=== PATIENT | female | born 1975 | race Caucasian/White ===

== ENCOUNTER 2019-08-26 14:30 | Observation (INO) | payer OTHER ==
[2019-08-26] MEDS ORDERED: HYDROmorphone 0.5 MG/0.5 ML SYRINGE IVP STA ×2 (15:24→17:25)
[2019-08-26] MEDS ORDERED: SODIUM CHLORIDE 0.9% 500 ML 500 ML IV STA (15:24)
[2019-08-26] MEDS ORDERED: ONDANSETRON 4 MG/2 ML VIAL IVP STA (15:24)
[2019-08-26] MEDS ORDERED: SODIUM CHLORIDE 0.9% 1,000 ML IV STA (15:24)
[2019-08-26 16:23] LABS: Basophils % (A) 0 %; Eosinophils # (A) 0.1 k/uL (0-0.7); Eosinophils % (A) 1 %; HCT 39.7 % (34.0-46.0); Lymphocytes # (A) 1.3 k/uL (1.0-4.8); Lymphocytes % (A) 11 %; MCH 27.7 pg (25.0-35.0); MCHC 32.7 g/dL (31.0-37.0); MCV 84.9 fL (80.0-100.0); Mean Platelet Volume 7.1; Monocytes # (A) 0.3 k/uL (0-1.0); Monocytes % (A) 3 %; Neutrophils # (A) 9.6 k/uL (1.3-7.7); Neutrophils % (A) 84 %; Platelet Count 345 k/uL (150-450); RBC 4.68 m/uL (3.80-5.40); RDW 13.6 % (11.5-15.5); WBC 11.3 k/uL (3.8-10.6)
[2019-08-26 16:27] LABS: ALT 23 U/L (9-52); AST 16 U/L (14-36); African American GFR (CKD) >90 (>60 ml/min/1.73 sqM); Albumin 4.1 g/dL (3.5-5.0); Alkaline Phosphatase 67 U/L (38-126); Amylase 51 U/L (30-110); Anion Gap 7 mmol/L; Blood Urea Nitrogen 9 mg/dL (7-17); Calcium 8.8 mg/dL (8.4-10.2); Carbon Dioxide 24 mmol/L (22-30); Chloride 106 mmol/L (98-107); Glucose 116 mg/dL (74-99); Potassium 4.2 mmol/L (3.5-5.1); Sodium 137 mmol/L (137-145); Total Bilirubin 0.2 mg/dL (0.2-1.3); Total Protein 6.7 g/dL (6.3-8.2)
--- NOTE | 2019-08-26 16:27 | ED ---
Abdominal Pain HPI - General Chief Complaint: Abdominal Pain Stated Complaint: abdominal pain Time Seen by Provider: 08/26/19 14:51 Source: patient, RN notes reviewed Mode of arrival: ambulatory Limitations: no limitations - History of Present Illness Initial Comments: 43-year-old female presents emergency Department with chief complaint of abdominal pain. Patient states it started this morning states it woke her up. Patient states is her upper abdomen does rate her back. Patient states that nothing makes the pain feel better or worse. She does admit to nausea vomiting. She has had panic this in the past but states it usually resolves. Patient states that she drank the pain to go away. Patient did not eat anything prior to this pain. Patient denies any current upper chest pain, shortness breath, headache or dizziness no fevers or chills. She has no dysuria no hematuria no diarrhea no constipation no prior abdominal surgeries. - Related Data Home Medications Medication Instructions Recorded Confirmed No Known Home Medications 08/26/19 08/26/19 Allergies Allergy/AdvReac Type Severity Reaction Status Date / Time sulfamethoxazole Allergy Rash/Hives Verified 08/26/19 14:51 [From Bactrim] trimethoprim [From Bactrim] Allergy Rash/Hives Verified 08/26/19 14:51 Review of Systems ROS Statement: Those systems with pertinent positive or pertinent negative responses have been documented in the HPI. ROS Other: All systems not noted in ROS Statement are negative. Past Medical History History of Any Multi-Drug Resistant Organisms: None Reported Past Surgical History: Back Surgery Past Psychological History: No Psychological Hx Reported Smoking Status: Never smoker Past Alcohol Use History: Occasional Past Drug Use History: None Reported General Exam Limitations: no limitations General appearance: alert, in no apparent distress Head exam: Present: atraumatic, normocephalic, normal inspection Eye exam: Present: normal appearance, PERRL, EOMI. Absent: scleral icterus, conjunctival injection, periorbital swelling Neck exam: Present: normal inspection, full ROM. Absent: tenderness, meningismus, lymphadenopathy Respiratory exam: Present: normal lung sounds bilaterally. Absent: respiratory distress, wheezes, rales, rhonchi, stridor Cardiovascular Exam: Present: regular rate, normal rhythm, normal heart sounds. Absent: systolic murmur, diastolic murmur, rubs, gallop, clicks GI/Abdominal exam: Present: soft, tenderness (Moderate upper abdominal diffuse), normal bowel sounds. Absent: distended, guarding, rebound, rigid Back exam: Absent: CVA tenderness (R), CVA tenderness (L) Neurological exam: Present: alert, oriented X3, CN II-XII intact Skin exam: Present: warm, dry, intact, normal color. Absent: rash Course Vital Signs 08/26/19 08/26/19 08/26/19 14:35 17:37 18:22 Temperature 98.2 F Pulse Rate 88 78 74 Respiratory 20 16 18 Rate Blood Pressure 129/81 132/84 110/77 O2 Sat by Pulse 99 99 94 L Oximetry Medical Decision Making - Medical Decision Making 43-year-old presented for abdominal. CT initially showed evidence of dilated common bile duct. Ultram was obtained given persistent symptoms which shows pericholecystic fluid collection with dilated gallbladder and gallstones. patient will be admitted on IV antibiotics. - Lab Data Result diagrams: 08/26/19 16:04 08/26/19 16:04 Lab Results 08/26/19 08/26/19 08/26/19 Range/Units 16:04 16:04 16:04 WBC 11.3 H (3.8-10.6) k/uL RBC 4.68 (3.80-5.40) m/uL Hgb 13.0 (11.4-16.0) gm/dL Hct 39.7 (34.0-46.0) % MCV 84.9 (80.0-100.0) fL MCH 27.7 (25.0-35.0) pg MCHC 32.7 (31.0-37.0) g/dL RDW 13.6 (11.5-15.5) % Plt Count 345 (150-450) k/uL Neutrophils % 84 % Lymphocytes % 11 % Monocytes % 3 % Eosinophils % 1 % Basophils % 0 % Neutrophils # 9.6 H (1.3-7.7) k/uL Lymphocytes # 1.3 (1.0-4.8) k/uL Monocytes # 0.3 (0-1.0) k/uL Eosinophils # 0.1 (0-0.7) k/uL Basophils # 0.0 (0-0.2) k/uL Sodium 137 (137-145) mmol/L Potassium 4.2 (3.5-5.1) mmol/L Chloride 106 (98-107) mmol/L Carbon Dioxide 24 (22-30) mmol/L Anion Gap 7 mmol/L BUN 9 (7-17) mg/dL Creatinine 0.58 (0.52-1.04) mg/dL Est GFR (CKD-EPI)AfAm >90 (>60 ml/min/1.73 sqM) Est GFR (CKD-EPI)NonAf >90 (>60 ml/min/1.73 sqM) Glucose 116 H (74-99) mg/dL Plasma Lactic Acid Bennett 1.0 (0.7-2.0) mmol/L Calcium 8.8 (8.4-10.2) mg/dL Total Bilirubin 0.2 (0.2-1.3) mg/dL AST 16 (14-36) U/L ALT 23 (9-52) U/L Alkaline Phosphatase 67 (38-126) U/L Troponin I (0.000-0.034) ng/mL Total Protein 6.7 (6.3-8.2) g/dL Albumin 4.1 (3.5-5.0) g/dL Amylase 51 (30-110) U/L Lipase 113 (23-300) U/L Urine Color Urine Appearance (Clear) Urine pH (5.0-8.0) Ur Specific [place] (1.001-1.035) Urine Protein (Negative) Urine Glucose (UA) (Negative) Urine Ketones (Negative) Urine Blood (Negative) Urine Nitrite (Negative) Urine Bilirubin (Negative) Urine Urobilinogen (<2.0) mg/dL Ur Leukocyte Esterase (Negative) Urine RBC (0-5) /hpf Urine WBC (0-5) /hpf Ur Squamous Epith Cells (0-4) /hpf Urine Mucus (None) /hpf 08/26/19 08/26/19 Range/Units 16:04 16:04 WBC (3.8-10.6) k/uL RBC (3.80-5.40) m/uL Hgb (11.4-16.0) gm/dL Hct (34.0-46.0) % MCV (80.0-100.0) fL MCH (25.0-35.0) pg MCHC (31.0-37.0) g/dL RDW (11.5-15.5) % Plt Count (150-450) k/uL Neutrophils % % Lymphocytes % % Monocytes % % Eosinophils % % Basophils % % Neutrophils # (1.3-7.7) k/uL Lymphocytes # (1.0-4.8) k/uL Monocytes # (0-1.0) k/uL Eosinophils # (0-0.7) k/uL Basophils # (0-0.2) k/uL Sodium (137-145) mmol/L Potassium (3.5-5.1) mmol/L Chloride (98-107) mmol/L Carbon Dioxide (22-30) mmol/L Anion Gap mmol/L BUN (7-17) mg/dL Creatinine (0.52-1.04) mg/dL Est GFR (CKD-EPI)AfAm (>60 ml/min/1.73 sqM) Est GFR (CKD-EPI)NonAf (>60 ml/min/1.73 sqM) Glucose (74-99) mg/dL Plasma Lactic Acid Bennett (0.7-2.0) mmol/L Calcium (8.4-10.2) mg/dL Total Bilirubin (0.2-1.3) mg/dL AST (14-36) U/L ALT (9-52) U/L Alkaline Phosphatase (38-126) U/L Troponin I <0.012 (0.000-0.034) ng/mL Total Protein (6.3-8.2) g/dL Albumin (3.5-5.0) g/dL Amylase (30-110) U/L Lipase (23-300) U/L Urine Color Yellow Urine Appearance Clear (Clear) Urine pH 7.0 (5.0-8.0) Ur Specific [place] 1.025 (1.001-1.035) Urine Protein Trace H (Negative) Urine Glucose (UA) Negative (Negative) Urine Ketones Negative (Negative) Urine Blood Negative (Negative) Urine Nitrite Negative (Negative) Urine Bilirubin Negative (Negative) Urine Urobilinogen <2.0 (<2.0) mg/dL Ur Leukocyte Esterase Trace H (Negative) Urine RBC 2 (0-5) /hpf Urine WBC 1 (0-5) /hpf Ur Squamous Epith Cells <1 (0-4) /hpf Urine Mucus Rare H (None) /hpf Disposition Clinical Impression: Cholelithiasis with acute cholecystitis Disposition: ADMITTED IP TO THIS HOSP Condition: Stable Referrals: Juwan Grubbs MD [Primary Care Provider] - 1-2 days
[2019-08-26 16:35] LABS: Appearance,Urine Clear (Clear); Bilirubin,Urine Negative (Negative); Blood,Urine Negative (Negative); Color,Urine Yellow; Glucose,Urine (UA) Negative (Negative); Ketones,Urine Negative (Negative); Leukocyte Esterase,Urine Trace (Negative); Mucus,Urine Rare /hpf; Nitrite,Urine Negative (Negative); Protein,Urine Trace (Negative); RBC,Urine 2 /hpf (0-5); Specific Gravity,Urine 1.025 (1.001-1.035); Squamous Epithelial Cell,Urine <1 /hpf (0-4); Urobilinogen,Urine <2.0 mg/dL (<2.0)
--- NOTE | 2019-08-26 16:45 | CT ---
EXAMINATION TYPE: CT abdomen pelvis w con DATE OF EXAM: 08/26/2019 COMPARISON: NONE HISTORY: 43-year-old female Severe upper abdominal pain TECHNIQUE: Contiguous axial scanning of the abdomen and pelvis following administration of 100 ml Iso jimmy 300 IV contrast. Delayed images through the kidneys and coronal/sagittal reconstructions perform ed. CT DLP: 920.2 mGycm Automated exposure control for dose reduction was used. FINDINGS: Heart upper limits of normal in size without pericardial effusion. Patchy groundglass in the lower gilmar ngs without pleural effusion. Liver enlarged at 21.3 cm possibly secondary to the presence of a Mainor's lobe. However, there is sl ightly low attenuation of the liver parenchyma. Bile duct is mildly dilated measuring up to 1 cm. Gallbladder is distended measuring up to 4.9 cm wid e. Portal venous system is patent. Adrenal glands, kidneys, spleen, and pancreas appear within normal limits. No dilated small bowel, free fluid, or free air. Scattered prominent but nonenlarged mesenteric lymph nodes measuring up to 5 mm. Scattered mild stool. No pericolonic inflammatory change. Bladder under distended. Uterus is anteverted. 4.9 cm cyst left ovary. Smaller 1.2 cm dominant follic le or functional cyst in the right ovary. No abnormal fluid collection in the pelvis or pelvic lympha denopathy. Bones: Facet arthropathy and degenerative disc disease lower lumbar spine. IMPRESSION: 1. MILDLY DILATED BILE DUCT AT 1 CM. CORRELATE WITH ALKALINE PHOSPHATASE AND BILIRUBIN LEVELS FOR POS SIBLE BILIARY OBSTRUCTION. ERCP OR MRCP CLINICALLY INDICATED. 2. THERE IS CORRESPONDING GALLBLADDER HYDROPS WHICH COULD BE SECONDARY TO BILIARY OBSTRUCTION OR ADALGISA Y ACUTE CHOLECYSTITIS. 3. A 4.9 CM CYST IN THE LEFT OVARY IS ALMOST CERTAINLY BENIGN. A PRECAUTIONARY MEASURE, 6-8 WEEK F OLLOW-UP ULTRASOUND CAN BE PERFORMED TO ENSURE INVOLUTION.
--- NOTE | 2019-08-26 18:25 | US ---
EXAMINATION TYPE: US gallbladder DATE OF EXAM: 08/26/2019 COMPARISON: CT 2019 CLINICAL HISTORY: Intractable abdominal pain, dilated common bile du. RUQ pain since 5 AM. Nausea, vo miting. EXAM MEASUREMENTS: Liver Length: 17.4 cm Gallbladder Wall: 0.20 cm CBD: 0.62 cm Right Kidney: 10.8 x 4.6 x 4.8 cm Pancreas: slightly limited Liver: Limited. Measures upper limits of normal Gallbladder: Appears distended. Measures 4.9 cm wide. Multiple echogenic areas with posterior shadow ing seen within the gallbladder. Largest measures: 1.9 x 1.9 x 1.2 cm. Hypoechoic area seen anterior to the gallbladder measurin.1 x 2.3 x 0.8 cm. Evidence for sonographic Wilson's sign: yes CBD: wnl Right Kidney: wnl IMPRESSION: Numerous gallstones. The bile ducts are not dilated. Gallbladder is dilated and measures more than 5 cm in diameter and consistent with acute cholecystitis. Small pericholecystic complex flu id collection.
[2019-08-26] MEDS ORDERED: HYDROmorphone 0.5 MG/0.5 ML SYRINGE IVP PRN (19:01)
[2019-08-26] MEDS ORDERED: NALOXONE 0.4 MG/ML 1 ML VIAL IV PRN (19:01)
[2019-08-26] MEDS ORDERED: PIPERACILLIN-TAZOBACTAM 3.375 GM in SODIUM CHLORIDE 0.9% 100 ML IVPB STA (19:02)
[2019-08-26] MEDS: SODIUM CHLORIDE 0.9% 1,000 ML IV SCH (20:10)
[2019-08-26] MEDS: HYDROmorphone 1 MG/ML 1 ML SYRINGE IVP PRN (21:18)
[2019-08-27] MEDS: HYDROmorphone 1 MG/ML 1 ML SYRINGE IVP PRN ×6 (00:29→22:48)
[2019-08-27] MEDS: PIPERACILLIN-TAZOBACTAM 3.375 GM in SODIUM CHLORIDE 0.9% 100 ML IVPB SCH ×3 (03:36→20:38)
[2019-08-27] MEDS ORDERED: ONDANSETRON 4 MG/2 ML VIAL IVP PRN (08:08)
[2019-08-27] MEDS ORDERED: HYDROcodone/APAP 5-325MG 1 EACH TAB PO PRN (08:08)
[2019-08-27] MEDS: PANTOPRAZOLE 40 MG/10 ML VIAL IVP SCH (08:29)
--- NOTE | 2019-08-27 08:52 | P.GSHP ---
History of Present Illness H&P Date: 08/27/19 Chief Complaint: abdominal pain CHIEF COMPLAINT: abdominal pain HISTORY OF PRESENT ILLNESS: 43 year old female who presented to the ER with a chief complaint of abdominal pain. Patient reports she was getting ready for work yesterday around 0500 when she began having abdominal pain.She reports pain was in the right upper quadrant and epigastric region. She reports getting this pain in the past but it usually resolved on its own after a short period of time. She reports nausea and vomiting prior to coming to the hospital. She is still nauseous this morning but no further episodes of vomiting. Denies diarrhea or constipation. Denies fever or chills. Pain is currently controlled on current regimen. PAST MEDICAL HISTORY: See list. PAST SURGICAL HISTORY: See list. SOCIAL HISTORY: No illicit drug use. REVIEW OF SYSTEMS: CONSTITUTIONAL: Denies fever or chills. HEENT: Denies blurred vision, vision changes, or eye pain. Denies hemoptysis CARDIOVASCULAR: Denies chest pain or pressure. RESPIRATORY: No shortness of breath. GASTROINTESTINAL: Refer to [facility] for pertinent findings HEMATOLOGIC: Denies bleeding disorders. GENITOURINARY: Denies any blood in urine. SKIN: Denies pruitis. Denies rash. PHYSICAL EXAM: VITAL SIGNS: Reviewed. GENERAL: Well-developed in no acute distress. HEENT: No sclera icterus. Extraocular movements grossly intact. Moist buccal mucosa. Head is atraumatic, normocephalic. ABDOMEN: Soft. Nondistended. Tenderness with palpation of right upper quadrant. Positive bowel sounds. NEUROLOGIC: Alert and oriented. Cranial nerves II through XII grossly intact. LABORATORY DATA: WBC 11.3 and admission. Hemoglobin 13.0. Lactic acid 1.0. Bilirubin 0.2. AST 16. ALT 23. IMAGIN. CT abdomen and pelvis: Mildly dilated bile duct at 1 cm. Corresponding gallbladder hydrops which could be secondary to biliary obstruction or early acute cholecystitis. 2. Gallbladder ultrasound: Numerous gallstones. Bile ducts are not dilated. Gallbladder is dilated and measures more than 5 cm in diameter consistent with acute cholecystitis. Small pericholecystic complex fluid collection. ASSESSMENT: 1. Abdominal pain 2. Acute cholecystitis 3. Leukocytosis PLAN: 1. NPO 2. Continue antibiotics 3. Patient to undergo laparoscopic cholecystectomy today with Dr. Schneider Nurse practitioner note has been reviewed by physician. Signing provider agrees with the documented findings, assessment, and plan of care. Past Medical History History of Any Multi-Drug Resistant Organisms: None Reported Past Surgical History: Back Surgery Additional Past Surgical History / Comment(s): back sx 1994, eye surgery-on right eye to "tighten muscles." Past Anesthesia/Blood Transfusion Reactions: No Reported Reaction Past Psychological History: No Psychological Hx Reported Smoking Status: Never smoker Past Alcohol Use History: Occasional Past Drug Use History: None Reported - Past Family History Mother Family Medical History: Cancer, Diabetes Mellitus, Hypertension Brother(s) Family Medical History: Diabetes Mellitus Medications and Allergies Home Medications Medication Instructions Recorded Confirmed Type Liraglutide [Saxenda] 1.8 units SQ DAILY 08/26/19 08/26/19 History Allergies Allergy/AdvReac Type Severity Reaction Status Date / Time sulfamethoxazole Allergy Intermediate Rash/Hives Verified 08/26/19 21:12 [From Bactrim] trimethoprim [From Bactrim] Allergy Intermediate Rash/Hives Verified 08/26/19 21:12 Surgical - Exam Vital Signs Temp Pulse Resp BP Pulse Ox 98.2 F 88 20 129/81 99 08/26/19 14:35 08/26/19 14:35 08/26/19 14:35 08/26/19 14:35 08/26/19 14:35 Results - Labs 08/26/19 16:04 08/26/19 16:04 Abnormal Lab Results - Last 24 Hours (Table) 08/26/19 08/26/19 08/26/19 Range/Units 16:04 16:04 16:04 WBC 11.3 H (3.8-10.6) k/uL Neutrophils # 9.6 H (1.3-7.7) k/uL Glucose 116 H (74-99) mg/dL Urine Protein Trace H (Negative) Ur Leukocyte Esterase Trace H (Negative) Urine Mucus Rare H (None) /hpf Diabetes panel 08/26/19 Range/Units 16:04 Sodium 137 (137-145) mmol/L Potassium 4.2 (3.5-5.1) mmol/L Chloride 106 (98-107) mmol/L Carbon Dioxide 24 (22-30) mmol/L BUN 9 (7-17) mg/dL Creatinine 0.58 (0.52-1.04) mg/dL Glucose 116 H (74-99) mg/dL Calcium 8.8 (8.4-10.2) mg/dL AST 16 (14-36) U/L ALT 23 (9-52) U/L Alkaline Phosphatase 67 (38-126) U/L Total Protein 6.7 (6.3-8.2) g/dL Albumin 4.1 (3.5-5.0) g/dL Calcium panel 08/26/19 Range/Units 16:04 Calcium 8.8 (8.4-10.2) mg/dL Albumin 4.1 (3.5-5.0) g/dL Pituitary panel 08/26/19 Range/Units 16:04 Sodium 137 (137-145) mmol/L Potassium 4.2 (3.5-5.1) mmol/L Chloride 106 (98-107) mmol/L Carbon Dioxide 24 (22-30) mmol/L BUN 9 (7-17) mg/dL Creatinine 0.58 (0.52-1.04) mg/dL Glucose 116 H (74-99) mg/dL Calcium 8.8 (8.4-10.2) mg/dL Adrenal panel 08/26/19 Range/Units 16:04 Sodium 137 (137-145) mmol/L Potassium 4.2 (3.5-5.1) mmol/L Chloride 106 (98-107) mmol/L Carbon Dioxide 24 (22-30) mmol/L BUN 9 (7-17) mg/dL Creatinine 0.58 (0.52-1.04) mg/dL Glucose 116 H (74-99) mg/dL Calcium 8.8 (8.4-10.2) mg/dL Total Bilirubin 0.2 (0.2-1.3) mg/dL AST 16 (14-36) U/L ALT 23 (9-52) U/L Alkaline Phosphatase 67 (38-126) U/L Total Protein 6.7 (6.3-8.2) g/dL Albumin 4.1 (3.5-5.0) g/dL
[2019-08-27] MEDS ORDERED: IV FLUID CONTINUATION 1,000 ML IV ONE ×2 (13:34→14:46)
[2019-08-27] MEDS ORDERED: ONDANSETRON 4 MG/2 ML VIAL IVP ONE (13:53)
[2019-08-27] MEDS ORDERED: DEXAMETHASONE SOD PHOSPHATE 10 MG/ML 1 ML VIAL IV ONE (13:54)
[2019-08-27] MEDS: HEPARIN SODIUM,PORCINE 5,000 UNIT/ML 1 ML VIAL SQ SCH (14:22)
[2019-08-27] MEDS ORDERED: LIDOCAINE 1% INJ 10MG/ML (20 ML MDV) ONE (14:45)
[2019-08-27] MEDS ORDERED: fentaNYL (PF) 50 MCG/ML 2 ML AMP ONE (14:45)
[2019-08-27] MEDS ORDERED: MIDAZOLAM 2 MG/2 ML VIAL ONE (14:45)
[2019-08-27] MEDS ORDERED: KETOROLAC 30 MG/ML 1 ML VIAL ONE (14:45)
[2019-08-27] MEDS ORDERED: ONDANSETRON 4 MG/2 ML VIAL ONE (14:45)
[2019-08-27] MEDS ORDERED: ROCURONIUM BROMIDE 10 MG/ML 10 ML VIAL IV ONE (14:45)
[2019-08-27] MEDS ORDERED: PROPOFOL 10 MG/ML 20 ML VIAL IV ONE (14:45)
[2019-08-27] MEDS ORDERED: GLYCOPYRROLATE 0.2 MG/ML 2 ML VIAL ONE (14:45)
[2019-08-27] MEDS ORDERED: DEXAMETHASONE SOD PHOS (MDV) 100 MG/10 ML VIAL ONE (14:45)
[2019-08-27] MEDS ORDERED: SUCCINYLCHOLINE CHLORIDE 100 MG/5 ML SYR IV ONE (14:45)
[2019-08-27] MEDS ORDERED: NEOSTIGMINE 1 MG/ML 10 ML VIAL ONE (14:45)
[2019-08-27] MEDS ORDERED: BUPIVACAINE (PF) 0.25% 30 ML VIAL SQ ONE (15:15)
--- NOTE | 2019-08-27 15:33 | P.OP ---
Date of Procedure: 08/27/19 Preoperative Diagnosis: Cholecystitis Postoperative Diagnosis: Cholecystitis Procedure(s) Performed: Laparoscopic cholecystectomy Anesthesia: MARGARITO Surgeon: Babak Schneider Estimated Blood Loss (ml): 5 Pathology: other (Gallbladder) Condition: stable Disposition: PACU Description of Procedure: The patient was placed on the operating table. The patient received a general endotracheal tube anesthesia. The patients abdomen was prepped and draped in the usual sterile fashion. Through an infraumbilical stab incision, the fascia of the anterior abdominal wall was grasped with a pair of Kochers and then the Veress needle was placed in the peritoneal cavity. Position of the Veress needle was confirmed with positive drop test. The abdomen was then insufflated. After adequate insufflation, the 10 mm trocar was placed in the peritoneal cavity. Following this the laparoscope was placed in the peritoneal cavity. The patient was placed in the head-up, right side up position and then a 5 mm trocar was placed in the right lateral and right subcostal position under direct visualization. A 8 mm trocar was placed in the epigastric position. The gallbladder was acutely inflamed. The gallbladder was hydropic. The gallbladder is aspirated. The gallbladder wall was very thick. The gallbladder was grasped in the fundus and infundibulum. Traction on the gallbladder was placed in the lateral and the cephalad positions. The triangle of Calot was vi sualized.. The cystic duct was bluntly dissected until the union of the cystic duct and common bile duct was seen. A critical view of safety was achieved. The cystic duct was then divided and sealed with the Harmonic scissors. A PDS Endoloop was then placed throughout the cystic duct stump. The cystic artery divided and sealed with the Harmonic scissors. The gallbladder was then removed from the liver bed using Harmonic scissors. The gallbladder was then extracted through the epigastric port site. Operative field was checked for any bleeding spots and Harmonic scissors was used to coagulate the liver bed. The abdomen was irrigated. The trocars were removed. The skin was closed using interrupted 3-0 Vicryl suture. Dermabond dressing were applied. The patient tolerated the procedure well.
[2019-08-27] MEDS: SODIUM CHLORIDE 0.9% 1,000 ML IV SCH (17:49)
[2019-08-27 20:30] VITALS: RESP 16
[2019-08-28] MEDS: PIPERACILLIN-TAZOBACTAM 3.375 GM in SODIUM CHLORIDE 0.9% 100 ML IVPB SCH (03:51)
[2019-08-28] MEDS: SODIUM CHLORIDE 0.9% 1,000 ML IV SCH (06:17)
[2019-08-28 08:05] LABS: Basophils % (A) 0 %; Eosinophils % (A) 0 %; HCT 34.4 % (34.0-46.0); Lymphocytes # (A) 1.3 k/uL (1.0-4.8); Lymphocytes % (A) 14 %; MCH 28.1 pg (25.0-35.0); MCHC 32.1 g/dL (31.0-37.0); MCV 87.5 fL (80.0-100.0); Mean Platelet Volume 6.8; Monocytes # (A) 0.4 k/uL (0-1.0); Monocytes % (A) 5 %; Neutrophils # (A) 7.6 k/uL (1.3-7.7); Neutrophils % (A) 81 %; Platelet Count 300 k/uL (150-450); RBC 3.93 m/uL (3.80-5.40); RDW 13.5 % (11.5-15.5); WBC 9.4 k/uL (3.8-10.6)
[2019-08-28] MEDS: PANTOPRAZOLE 40 MG/10 ML VIAL IVP SCH (08:11)
[2019-08-28] MEDS: HEPARIN SODIUM,PORCINE 5,000 UNIT/ML 1 ML VIAL SQ SCH (08:11)
[2019-08-28 08:48] VITALS: BP 111/65; PULSE 53; TEMP 97.7
--- NOTE | 2019-08-28 11:53 | P.DS ---
Providers Date of admission: 08/26/19 18:45 Expected date of discharge: 08/28/19 Attending physician: Babak Schneider Primary care physician: Juwan Grubbs [facility] Course: 43 year old female who presented to the ER with a chief complaint of abdominal pain. Patient was found to have acute cholecystitis. She underwent laparoscopic cholecystectomy with Dr. Schneider. Patient is doing well postoperatively with no immediate complications. Pain is controlled on oral medications. She is tolerating diet without nausea or vomiting. Vital signs have been stable. She is stable for discharge home today. Please see EMR for further hospital course details. Discharge Diagnosis: 1. Abdominal pain 2. Acute cholecystitis 3. Leukocytosis Nurse practitioner note has been reviewed by physician. Signing provider agrees with the documented findings, assessment, and plan of care. Patient Condition at Discharge: Stable Plan - Discharge Summary Discharge Rx Participant: No New Discharge Prescriptions: New Hydrocodone/Acetaminophen [[place] 5-325] 1 tab PO Q4HR PRN 3 Days #18 tab PRN Reason: Pain No Action Liraglutide [Saxenda] 1.8 units SQ DAILY Discharge Medication List Liraglutide [Saxenda] 1.8 units SQ DAILY 08/26/19 [History] Hydrocodone/Acetaminophen [[place] 5-325] 1 tab PO Q4HR PRN 3 Days #18 tab 08/28/19 [Rx] Follow up Appointment(s)/Referral(s): Juwan Grubbs MD [Primary Care Provider] - 1-2 days Babak Schneider MD [STAFF PHYSICIAN] - 1 Week Activity/Diet/Wound Care/Special Instructions: No driving while taking [place] No lifting over 10 pounds You may shower. No soaking or tub baths Very light activity until you are reevaluated at your follow up appointment with your surgeon
== END 2019-08-28 12:55 | disposition home or self-care (01) ==
LOC: EC 14:30 → 6PED 18:45
PROVIDERS: ADMIT Surgery; ATTEND Surgery
DX: K80.00 Calculus of gallbladder with acute cholecystitis without obstruction (principal); K21.9 Gastro-esophageal reflux disease without esophagitis; N83.202 Unspecified ovarian cyst, left side; Z79.84 Long term (current) use of oral hypoglycemic drugs; Z88.1 Allergy status to other antibiotic agents; Z88.2 Allergy status to sulfonamides; Z83.3 Family history of diabetes mellitus; Z82.49 Family history of ischemic heart disease and other diseases of the circulatory system
CPT/HCPCS: 47562; 96375 ×2; 96376 ×3; 96361; 96374; 99285; 36415; 93005; 81025 ×2; 88304; 80053; 82150; 83605; 83690; 84484; 85025 ×2; 81001; 76705; 74177; G0378 ×3; J2543 ×3; J2250; J1644 ×2; J1100 ×2; J2710; J2405 ×2; J2001; J3010; J1885; J1170 ×4; J0330; J2704; C9113 ×2; Q9967

== ENCOUNTER → 2020-11-24 | Outpatient (CLI) | payer OTHER ==
--- NOTE | 2020-11-24 11:09 | FL ---
EXAMINATION TYPE: FL UGI air DATE OF EXAM: 11/24/2020 COMPARISON: CT abdomen and pelvis August 26, 2019 HISTORY: Epigastric pain, reflux-like symptoms. Some improvement on reflux medication per patient. TECHNIQUE: A double contrast UGI study is performed. A total of 30 seconds of fluoroscopic time util ized during procedure. 44 spot images saved. FINDINGS: Branch Office Manager image of the abdomen shows no gross abnormality. The esophagus shows satisfactory motility and emptying into the stomach. No evidence of fixed hiatal hernia or stricture noted. No diverticulum appreciated. The stomach shows less than optimal distention with mild gastric fold prominence fairly diffusely gre atest in the fundus. No focal ulcer disease identified. Fairly moderate distal gastroesophageal reflu x into distal one half of the esophagus seen during real-time performance. The duodenal bulb, sweep, and proximal small bowel loops are unremarkable. IMPRESSION: Mild diffuse gastritis with moderate gastroesophageal reflux.
== END | disposition home or self-care (01) ==
LOC: RADUSWWP 09:33
PROVIDERS: ATTEND Family Medicine
DX: K21.9 Gastro-esophageal reflux disease without esophagitis (principal); K29.70 Gastritis, unspecified, without bleeding
CPT/HCPCS: 74246

== ENCOUNTER → 2020-12-03 | Outpatient (CLI) | payer OTHER ==
--- NOTE | 2020-12-07 10:17 | MM ---
Reason for exam: screening (asymptomatic). History: Family history of breast cancer in maternal grandmother. Took hormonal contraceptives for 5 years. Physical Findings: A clinical breast exam by your physician is recommended on an annual basis and results should be correlated with mammographic findings. MG 3D Screening Mammo W/Cad Bilateral CC and MLO view(s) were taken. No prior studies available for comparison. There are scattered fibroglandular densities. 7mm circumscribed mass posterior upper outer quadrant right breast suspected intrammary node. Ultrasound recommended to confirm. Otherwise, no discrete abnormality. ASSESSMENT: Incomplete: need additional imaging evaluation, BI-RAD 0 RECOMMENDATION: Ultrasound of the right breast. [facility] will attempt to contact patient to return for ultrasound.
== END | disposition home or self-care (01) ==
LOC: RADMAMWWP 16:24
PROVIDERS: ATTEND Family Medicine
DX: Z12.31 Encounter for screening mammogram for malignant neoplasm of breast (principal)
CPT/HCPCS: 77063; 77067

== ENCOUNTER → 2020-12-16 | Outpatient (CLI) | payer OTHER ==
--- NOTE | 2020-12-16 09:00 | USB ---
Reason for exam: additional evaluation requested from abnormal screening. History: Family history of breast cancer in maternal grandmother. Took hormonal contraceptives for 5 years. Physical Findings: Nurse did not find any significant physical abnormalities on exam. US Breast Workup Limited RT Right limited breast ultrasound including focal area of concern, retroareolar and axilla demonstrates a 0.6 x 0.4 x 0.6cm lymph node at 11 o'clock, corresponds to the mammographic finding. Scanned 9-12 o'clock. These results were verbally communicated with the patient and result sheet given to the patient on 12/16/20. ASSESSMENT: Benign, BI-RAD 2 RECOMMENDATION: Return to routine screening mammogram schedule for both breasts.
== END | disposition home or self-care (01) ==
LOC: RADUSWWP 07:36
PROVIDERS: ATTEND Family Medicine
DX: R92.8 Other abnormal and inconclusive findings on diagnostic imaging of breast (principal)

== ENCOUNTER 2020-12-20 06:42 | Emergency (ER) | payer OTHER ==
[2020-12-20 06:49] VITALS: TEMP 98.3
[2020-12-20] MEDS ORDERED: KETOROLAC 15 MG/ML 1 ML VIAL IM STA (06:58)
--- NOTE | 2020-12-20 07:24 | ED ---
Fall HPI - General Chief Complaint: Fall Stated Complaint: fall,head injury Time Seen by Provider: 12/20/20 06:51 Source: patient, RN notes reviewed Mode of arrival: ambulatory - History of Present Illness Initial Comments: Patient is a 45-year-old white female that presented to the emergency department complaining of head pain, neck stiffness status post fall this morning while on her way to her car to work. She was she slipped feet went out from under [employer] and she landed on the back of her head. She noted that she did not lose consciousness she does not feel dizzy nauseous and hasn't vomited. She was accompanied by her who noted that she had an hour drive and didn't want her to drive by herself just in case. She noted some mild stiffness in the right aspect of her neck. Other than that she stated that she was doing okay this morning and had no issues. Patient did appear to be in mild pain but no distress. She denied any nausea, vomiting, loss of consciousness, dizziness, lightheadedness, numbness, tingling, chest pain, shortness of breath, fever, fatigue, chills, night sweats. - Related Data Home Medications Medication Instructions Recorded Confirmed Omeprazole 20 mg PO DAILY 12/20/20 12/20/20 buPROPion XL [Wellbutrin Xl] 150 mg PO DAILY 12/20/20 12/20/20 Allergies Allergy/AdvReac Type Severity Reaction Status Date / Time sulfamethoxazole Allergy Intermediate Rash/Hives Verified 12/20/20 07:37 [From Bactrim] trimethoprim [From Bactrim] Allergy Intermediate Rash/Hives Verified 12/20/20 07:37 Review of Systems ROS Statement: Those systems with pertinent positive or pertinent negative responses have been documented in the HPI. ROS Other: All systems not noted in ROS Statement are negative. Past Medical History Past Medical History: No Reported History History of Any Multi-Drug Resistant Organisms: None Reported Past Surgical History: Back Surgery Additional Past Surgical History / Comment(s): back sx 1994, eye surgery-on right eye to "tighten muscles." Past Anesthesia/Blood Transfusion Reactions: No Reported Reaction Past Psychological History: No Psychological Hx Reported Smoking Status: Never smoker Past Alcohol Use History: Occasional Past Drug Use History: None Reported - Past Family History Mother Family Medical History: Cancer, Diabetes Mellitus, Hypertension Brother(s) Family Medical History: Diabetes Mellitus General Exam Limitations: no limitations General appearance: alert, in no apparent distress Head exam: Present: normocephalic, normal inspection Eye exam: Present: normal appearance, PERRL, EOMI. Absent: scleral icterus, conjunctival injection, periorbital swelling ENT exam: Present: normal exam, mucous membranes moist Neck exam: Present: normal inspection, tenderness ( right paraspinal muscles in the cervical region). Absent: meningismus, lymphadenopathy Respiratory exam: Present: normal lung sounds bilaterally. Absent: respiratory distress, wheezes, rales, rhonchi, stridor Cardiovascular Exam: Present: regular rate, normal rhythm, normal heart sounds. Absent: systolic murmur, diastolic murmur, rubs, gallop, clicks GI/Abdominal exam: Present: soft, normal bowel sounds. Absent: distended, tenderness, guarding, rebound, rigid Extremities exam: Present: normal inspection, full ROM, normal capillary refill. Absent: tenderness, pedal edema, joint swelling, calf tenderness Neurological exam: Present: alert, oriented X3, CN II-XII intact Psychiatric exam: Present: normal affect, normal mood Skin exam: Present: warm, dry, intact, normal color. Absent: rash Course Vital Signs 12/20/20 06:45 Temperature 98.3 F Pulse Rate 78 Respiratory 18 Rate Blood Pressure 137/88 O2 Sat by Pulse 98 Oximetry Medical Decision Making - Medical Decision Making 45-year-old female status post fall where she hit her head. Patient was given pain medication, she tolerated it well. CT of the head and neck. CT came back negative for any fractures or bleeds. Case discussed with Dr. Brunner. - Radiology Data Radiology results: report reviewed, image reviewed There is no evidence for intracranial hemorrhage or sulcal effacement. No mass effects are seen. Disposition Clinical Impression: Fall, Head injury, Neck stiffness Disposition: HOME SELF-CARE Condition: Stable Instructions (If sedation given, give patient instructions): Head Injury (ED) Additional Instructions: Please return to the Emergency Department if symptoms worsen or any other concerns. Monitor for any dizziness, confusion, nausea. Try not to sleep morning For at least 8 hours. Pain medication as needed. Follow-up with primary care 1-2 days. Is patient prescribed a controlled substance at d/c from ED?: No Referrals: Lourdes Gamble MD [Primary Care Provider] - 1-2 days Time of Disposition: 08:27
[2020-12-20 08:02] VITALS: BP 128/81; PULSE 74; RESP 16
--- NOTE | 2020-12-20 08:04 | CT ---
EXAMINATION TYPE: CT brain nena valero DATE OF EXAM: 12/20/2020 COMPARISON: None HISTORY: Pain, Fall; heead injury; NO LOC CT DLP: 1323.[address] Brain: Unenhanced CT of the brain was performed. The ventricles, basal cisterns and sulci overlying the cerebral convexities demonstrate a normal appe arance. There is no evidence for intracranial hemorrhage or sulcal effacement. No mass effects are seen. If symptoms persist consider MRI. Osseous calvarium is intact. IMPRESSION: No acute intracranial process CT Cervical Spine: Unenhanced CT of the cervical spine was performed with bone and soft tissue window settings submitted . Coronal and sagittal reconstruction is obtained. There is normal alignment and prevertebral soft tissues. I do not see evidence for fracture or sublu xation. No significant degenerative changes are present. The lung apices are clear. IMPRESSION: No evidence for acute fracture or subluxation of the cervical spine.
== END 2020-12-20 08:36 | disposition home or self-care (01) ==
LOC: EC 06:42
DX: S09.90XA Unspecified injury of head, initial encounter (principal); M43.6 Torticollis; Z88.1 Allergy status to other antibiotic agents; Z88.2 Allergy status to sulfonamides; W01.10XA Fall on same level from slipping, tripping and stumbling with subsequent striking against unspecified object, initial encounter
CPT/HCPCS: 72125; 70450; 99284; 96372; J1885

== ENCOUNTER → 2021-12-22 | Outpatient (CLI) | payer OTHER ==
--- NOTE | 2021-12-22 12:31 | ECHOF ---
Referral Reason:R00.2 palpitations MEASUREMENTS -------- HEIGHT: 157.5 cm WEIGHT: 77.1 kg BP: RVIDd: 2.7 cm (< 3.3) IVSd: 1.0 cm (0.6 - 1.1) LVIDd: 3.8 cm (3.9 - 5.3) LVPWd: 1.4 cm (0.6 - 1.1) IVSs: 1.6 cm LVIDs: 1.4 cm LVPWs: 1.5 cm LAESV Index (A-L): 22.79 ml/m Ao Diam: 3.0 cm (2.0 - 3.7) AV Cusp: 1.7 cm (1.5 - 2.6) LA Diam: 3.2 cm (2.7 - 3.8) MV EXCURSION: 18.395 mm (> 18.000) MV EF SLOPE: 102 mm/s (70 - 150) EPSS: 0.5 cm MV E Soham: 0.79 m/s MV DecT: 173 ms MV A Soham: 0.56 m/s MV E/A Ratio: 1.41 RAP: 5.00 mmHg RVSP: 32.02 mmHg FINDINGS -------- This was a technically good study. The left ventricular size is normal. Left ventricular wall thickness is normal. Overall left vent ricular systolic function is normal with, an EF between 55 - 60 %. The right ventricle is normal in size. The left atrial size is normal. The right atrial size is normal. The aortic valve is trileaflet and appears structurally normal. The mitral valve is normal. There is trace mitral regurgitation. The tricuspid valve appears structurally normal. Mild tricuspid regurgitation present. Right vent ricular systolic pressure is normal at < 35 mmHg. There is no pulmonic regurgitation present. The aortic root size is normal. Normal inferior vena cava with normal inspiratory collapse consistent with estimated right atrial pre ssure of 5 mmHg. There is no pericardial effusion. CONCLUSIONS -------- 1. The left ventricular size is normal. 2. Left ventricular wall thickness is normal. 3. Overall left ventricular systolic function is normal with, an EF between 55 - 60 %. 4. There is trace mitral regurgitation. 5. Mild tricuspid regurgitation present. 6. There is no pericardial effusion. [employer] MACHINE OPERATOR: Farnaz Moreno RDCS
== END | disposition home or self-care (01) ==
LOC: RADECHMAIN 11:00
PROVIDERS: ATTEND Family Medicine
DX: I08.1 Rheumatic disorders of both mitral and tricuspid valves (principal)
CPT/HCPCS: 93306

== ENCOUNTER 2022-09-06 07:09 | Emergency (ER) | payer OTHER ==
[2022-09-06] MEDS ORDERED: SODIUM CHLORIDE 0.9% 1,000 ML IV STA (07:35)
[2022-09-06] MEDS ORDERED: HYDROmorphone 0.5 MG/0.5 ML SYRINGE IVP STA (07:35)
[2022-09-06] MEDS ORDERED: ONDANSETRON 4 MG/2 ML VIAL IVP STA (07:35)
--- NOTE | 2022-09-06 07:42 | ED ---
Abdominal Pain HPI - General Chief Complaint: Abdominal Pain Stated Complaint: Abdominal Pain Time Seen by Provider: 09/06/22 07:29 Source: patient, RN notes reviewed Mode of arrival: ambulatory Limitations: no limitations - History of Present Illness Initial Comments: 46-year-old female presents emergency Department with chief complaint of left lower quadrant abdominal pain. Patient states started overnight. Patient states with movement or pressing on the area. Patient denies any history of diverticulitis denies any vaginal bleeding vaginal discharge no hematuria or dysuria noted patient states she's no back pain no flank pain patient denies fe vers chills chest pain shortness breath. - Related Data Home Medications Medication Instructions Recorded Confirmed Omeprazole 20 mg PO DAILY 12/20/20 12/20/20 buPROPion XL [Wellbutrin Xl] 150 mg PO DAILY 12/20/20 12/20/20 Previous Rx's Medication Instructions Recorded Ibuprofen [Motrin] 600 mg PO Q8HR PRN #20 tab 09/06/22 Allergies Allergy/AdvReac Type Severity Reaction Status Date / Time sulfamethoxazole Allergy Intermediate Rash/Hives Verified 09/06/22 07:27 [From Bactrim] trimethoprim [From Bactrim] Allergy Intermediate Rash/Hives Verified 09/06/22 07:27 Review of Systems ROS Statement: Those systems with pertinent positive or pertinent negative responses have been documented in the HPI. ROS Other: All systems not noted in ROS Statement are negative. Past Medical History Past Medical History: No Reported History History of Any Multi-Drug Resistant Organisms: None Reported Past Surgical History: Back Surgery, Cholecystectomy, Uterine Ablation Additional Past Surgical History / Comment(s): back sx 1994, eye surgery-on right eye to "tighten muscles." Past Anesthesia/Blood Transfusion Reactions: No Reported Reaction Past Psychological History: No Psychological Hx Reported Smoking Status: Never smoker Past Alcohol Use History: Occasional Past Drug Use History: None Reported - Past Family History Mother Family Medical History: Cancer, Diabetes Mellitus, Hypertension Brother(s) Family Medical History: Diabetes Mellitus General Exam Limitations: no limitations General appearance: alert, in no apparent distress Head exam: Present: atraumatic, normocephalic, normal inspection Eye exam: Present: normal appearance, PERRL, EOMI. Absent: scleral icterus, conjunctival injection, periorbital swelling ENT exam: Present: normal exam, normal oropharynx, mucous membranes moist Neck exam: Present: normal inspection, full ROM. Absent: tenderness, meningismus, lymphadenopathy Respiratory exam: Present: normal lung sounds bilaterally. Absent: respiratory distress, wheezes, rales, rhonchi, stridor Cardiovascular Exam: Present: regular rate, normal rhythm, normal heart sounds. Absent: systolic murmur, diastolic murmur, rubs, gallop, clicks GI/Abdominal exam: Present: soft, tenderness (Left lower quadrant), normal bowel sounds. Absent: distended, guarding, rebound, rigid Back exam: Absent: CVA tenderness (R), CVA tenderness (L) Neurological exam: Present: alert Skin exam: Present: warm, dry, intact, normal color. Absent: rash Course Vital Signs 09/06/22 07:24 Temperature 98 F Pulse Rate 92 Respiratory 16 Rate Blood Pressure 149/90 O2 Sat by Pulse 98 Oximetry Medical Decision Making - Medical Decision Making 46-year-old female presented emergency from for left upper quadrant abdominal pain CT showed evidence of ovarian cyst compartmental WITH NORMAL FLOW. 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 - Lab Data Result diagrams: 09/06/22 07:51 09/06/22 07:51 Lab Results 09/06/22 09/06/22 09/06/22 Range/Units 07:51 07:51 07:51 WBC 11.3 H (3.8-10.6) k/uL RBC 5.13 (3.80-5.40) m/uL Hgb 14.4 (11.4-16.0) gm/dL Hct 43.7 (34.0-46.0) % MCV 85.1 (80.0-100.0) fL MCH 28.1 (25.0-35.0) pg MCHC 33.1 (31.0-37.0) g/dL RDW 13.4 (11.5-15.5) % Plt Count 431 (150-450) k/uL MPV 8.2 Neutrophils % 66 % Lymphocytes % 27 % Monocytes % 4 % Eosinophils % 2 % Basophils % 0 % Neutrophils # 7.5 (1.3-7.7) k/uL Lymphocytes # 3.0 (1.0-4.8) k/uL Monocytes # 0.5 (0-1.0) k/uL Eosinophils # 0.2 (0-0.7) k/uL Basophils # 0.1 (0-0.2) k/uL Sodium 138 (137-145) mmol/L Potassium 4.9 (3.5-5.1) mmol/L Chloride 106 (98-107) mmol/L Carbon Dioxide 23 (22-30) mmol/L Anion Gap 9 mmol/L BUN 10 (7-17) mg/dL Creatinine 0.59 (0.52-1.04) mg/dL Est GFR (CKD-EPI)AfAm >90 (>60 ml/min/1.73 sqM) Est GFR (CKD-EPI)NonAf >90 (>60 ml/min/1.73 sqM) Glucose 125 H (74-99) mg/dL Plasma Lactic Acid Bennett (0.7-2.0) mmol/L Calcium 8.7 (8.4-10.2) mg/dL Total Bilirubin 0.7 (0.2-1.3) mg/dL AST 23 (14-36) U/L ALT 27 (4-34) U/L Alkaline Phosphatase 74 (38-126) U/L Total Protein 6.7 (6.3-8.2) g/dL Albumin 4.3 (3.5-5.0) g/dL Lipase 84 (23-300) U/L Urine Color Colorless Urine Appearance Clear (Clear) Urine pH 6.5 (5.0-8.0) Ur Specific [place] 1.005 (1.001-1.035) Urine Protein Negative (Negative) Urine Glucose (UA) Negative (Negative) Urine Ketones Negative (Negative) Urine Blood Trace H (Negative) Urine Nitrite Negative (Negative) Urine Bilirubin Negative (Negative) Urine Urobilinogen <2.0 (<2.0) mg/dL Ur Leukocyte Esterase Trace H (Negative) Urine RBC 1 (0-5) /hpf Urine WBC 1 (0-5) /hpf Ur Squamous Epith Cells 2 (0-4) /hpf 09/06/22 Range/Units 07:51 WBC (3.8-10.6) k/uL RBC (3.80-5.40) m/uL Hgb (11.4-16.0) gm/dL Hct (34.0-46.0) % MCV (80.0-100.0) fL MCH (25.0-35.0) pg MCHC (31.0-37.0) g/dL RDW (11.5-15.5) % Plt Count (150-450) k/uL MPV Neutrophils % % Lymphocytes % % Monocytes % % Eosinophils % % Basophils % % Neutrophils # (1.3-7.7) k/uL Lymphocytes # (1.0-4.8) k/uL Monocytes # (0-1.0) k/uL Eosinophils # (0-0.7) k/uL Basophils # (0-0.2) k/uL Sodium (137-145) mmol/L Potassium (3.5-5.1) mmol/L Chloride (98-107) mmol/L Carbon Dioxide (22-30) mmol/L Anion Gap mmol/L BUN (7-17) mg/dL Creatinine (0.52-1.04) mg/dL Est GFR (CKD-EPI)AfAm (>60 ml/min/1.73 sqM) Est GFR (CKD-EPI)NonAf (>60 ml/min/1.73 sqM) Glucose (74-99) mg/dL Plasma Lactic Acid Bennett 0.7 (0.7-2.0) mmol/L Calcium (8.4-10.2) mg/dL Total Bilirubin (0.2-1.3) mg/dL AST (14-36) U/L ALT (4-34) U/L Alkaline Phosphatase (38-126) U/L Total Protein (6.3-8.2) g/dL Albumin (3.5-5.0) g/dL Lipase (23-300) U/L Urine Color Urine Appearance (Clear) Urine pH (5.0-8.0) Ur Specific [place] (1.001-1.035) Urine Protein (Negative) Urine Glucose (UA) (Negative) Urine Ketones (Negative) Urine Blood (Negative) Urine Nitrite (Negative) Urine Bilirubin (Negative) Urine Urobilinogen (<2.0) mg/dL Ur Leukocyte Esterase (Negative) Urine RBC (0-5) /hpf Urine WBC (0-5) /hpf Ur Squamous Epith Cells (0-4) /hpf Disposition Clinical Impression: Ovarian cyst Disposition: HOME SELF-CARE Condition: Stable Instructions (If sedation given, give patient instructions): Ovarian Cyst (ED) Additional Instructions: Please return to the Emergency Department if symptoms worsen or any other concerns. Prescriptions: Ibuprofen [Motrin] 600 mg PO Q8HR PRN #20 tab PRN Reason: Pain Is patient prescribed a controlled substance at d/c from ED?: No Referrals: None,Stated [Primary Care Provider] - 1-2 days Time of Disposition: 10:43
[2022-09-06 08:00] LABS: Basophils # (A) 0.1 k/uL (0-0.2); Basophils % (A) 0 %; Eosinophils # (A) 0.2 k/uL (0-0.7); Eosinophils % (A) 2 %; HCT 43.7 % (34.0-46.0); HGB 14.4 gm/dL (11.4-16.0); Lymphocytes % (A) 27 %; MCH 28.1 pg (25.0-35.0); MCHC 33.1 g/dL (31.0-37.0); MCV 85.1 fL (80.0-100.0); Mean Platelet Volume 8.2; Monocytes # (A) 0.5 k/uL (0-1.0); Monocytes % (A) 4 %; Neutrophils # (A) 7.5 k/uL (1.3-7.7); Neutrophils % (A) 66 %; Platelet Count 431 k/uL (150-450); RBC 5.13 m/uL (3.80-5.40); RDW 13.4 % (11.5-15.5); WBC 11.3 k/uL (3.8-10.6)
[2022-09-06 08:09] LABS: Appearance,Urine Clear (Clear); Bilirubin,Urine Negative (Negative); Blood,Urine Trace (Negative); Color,Urine Colorless; Glucose,Urine (UA) Negative (Negative); Ketones,Urine Negative (Negative); Leukocyte Esterase,Urine Trace (Negative); Nitrite,Urine Negative (Negative); PH, Urine 6.5 (5.0-8.0); Protein,Urine Negative (Negative); RBC,Urine 1 /hpf (0-5); Specific Gravity,Urine 1.005 (1.001-1.035); Squamous Epithelial Cell,Urine 2 /hpf (0-4); Urobilinogen,Urine <2.0 mg/dL (<2.0); WBC,Urine 1 /hpf (0-5)
[2022-09-06 08:16] LABS: ALT 27 U/L (4-34); AST 23 U/L (14-36); African American GFR (CKD) >90 (>60 ml/min/1.73 sqM); Albumin 4.3 g/dL (3.5-5.0); Alkaline Phosphatase 74 U/L (38-126); Anion Gap 9 mmol/L; Blood Urea Nitrogen 10 mg/dL (7-17); Calcium 8.7 mg/dL (8.4-10.2); Carbon Dioxide 23 mmol/L (22-30); Chloride 106 mmol/L (98-107); Glucose 125 mg/dL (74-99); Lipase 84 U/L (23-300); Non-African American GFR(CKD) >90 (>60 ml/min/1.73 sqM); Sodium 138 mmol/L (137-145); Total Bilirubin 0.7 mg/dL (0.2-1.3); Total Protein 6.7 g/dL (6.3-8.2)
[2022-09-06 08:21] LABS: Potassium 4.9 mmol/L (3.5-5.1)
--- NOTE | 2022-09-06 09:17 | CT ---
EXAMINATION TYPE: CT abdomen pelvis w con CT DLP: 983.1 mGycm, Automated exposure control for dose reduction was used. DATE OF EXAM: 09/06/2022 9:03 AM COMPARISON: CT abdomen pelvis most recent from 08/26/2019 . CLINICAL INDICATION:Female, 46 years old with history of abdominal pain; LLQ abdominal pain TECHNIQUE: Standard CT of the abdomen and pelvis following the administration of 100 cc of Isovue 3 00 IV contrast material. Coronal and sagittal reformats were performed. FINDINGS: LOWER CHEST: Posterior dependent subsegmental atelectasis is noted. ABDOMEN LIVER: Diffusely hypoattenuating parenchyma. GALLBLADDER AND BILE DUCTS: The gallbladder is surgically absent. No biliary ductal dilatation. PANCREAS: Unremarkable. SPLEEN: Unremarkable. ADRENAL GLANDS: Unremarkable. KIDNEYS AND URETERS: No evidence of hydronephrosis or renal calculus. The kidneys enhance symmetrical ly. Contrast is demonstrated within both collecting systems on the delayed phase. PELVIS BLADDER: Unremarkable REPRODUCTIVE: There appears to be 2 uterine horns. Left ovarian cystic lesion measuring up to 2.9 cm. ABDOMEN & PELVIS STOMACH AND BOWEL: Stomach and duodenum are unremarkable. No focal wall thickening. No diverticulosis . The appendix is within normal limits. No evidence of bowel obstruction. PERITONEUM: No evidence of pneumoperitoneum. Trace fluid in the pelvis, possibly physiologic. VASCULATURE: No evidence of aortic aneurysm. MUSCULOSKELETAL: No acute osseous abnormalities. Degenerative changes of the lower lumbar spine with disc space narrowing, endplate sclerosis, vacuum disc disease, and anterior osteophytosis. LYMPH NODES: No gross evidence for lymphadenopathy. SOFT TISSUE/ABDOMINAL WALL: Small fat filled umbilical hernia. IMPRESSION: 1. Left ovarian cystic lesion measuring up to 2.9 cm which may represent a follicular cyst. Trace fr ee fluid in the pelvis which may be physiologic versus related to ruptured cyst. Consider further claudy luation with pelvic ultrasound as clinically indicated. 2. There appears to be 2 uterine horns which can be seen with bicornate uterus versus septate uterus. This can be further assessed with pelvic ultrasound as clinically indicated. 3. Hepatic steatosis.
[2022-09-06] MEDS ORDERED: KETOROLAC 15 MG/ML 1 ML VIAL IVP STA (09:33)
--- NOTE | 2022-09-06 10:22 | US ---
EXAMINATION TYPE: US transvaginal DATE OF EXAM: 09/06/2022 COMPARISON: Same day CT CLINICAL HISTORY: pain Left. Pt states LLQ pain TECHNIQUE: Transvaginal (TV). Transvaginal sonographic images of the pelvis were acquired. Date of LMP: Pt states 1 year ago due to ablation EXAM MEASUREMENTS: Uterus: 8.9 x 4.5 x 6.3 cm Endometrial Stripe: Right endometrium measures 1.4 cm in thickness. The left endometrium measures 1.0 cm in thickness. Right Ovary: 2.1 x 1.3 x 1.6 cm Left Ovary: 3.9 x 2.7 x 3.5 cm 1. Uterus: Anteverted Bicornuate as visualized on CT 2. Endometrium: Right horn= 1.4 cm Left Horn= 1.0 cm- thickened for pt's h/o ablation 3. Right Ovary: wnl. 4. Left Ovary: Probable hemorrhagic cyst= 2.2 x 1.8 x 2.3 cm. Spectral, color and waveform doppler imaging shows good arterial and venous flow within the ovaries ; there is no evidence for ovarian torsion. 5. Bilateral Adnexa: wnl 6. Posterior cul-de-sac: Scant amount of free fluid IMPRESSION: 1. Left ovarian 2.2 cm hypoechoic lesion only seen on transabdominal imaging and probably represents a hemorrhagic cyst. Follow-up ultrasound in 6 weeks is recommended. 2. Bicornate uterine morphology. 3. Trace amount of fluid in the posterior cul-de-sac.
[2022-09-06] MEDS ORDERED: ACET/COD 300 MG/30 MG STARTER PACK 6 TAB BTL PO STA (10:42)
[2022-09-06 10:55] VITALS: BP 114/85; PULSE 74; RESP 18; TEMP 98.3
== END 2022-09-06 10:55 | disposition home or self-care (01) ==
LOC: EC 07:09
DX: N83.202 Unspecified ovarian cyst, left side (principal); Z88.2 Allergy status to sulfonamides; Z88.8 Allergy status to other drugs, medicaments and biological substances
CPT/HCPCS: 99284; 96374; 96375; 96361; 36415; 80053; 83605; 83690; 85025; 81001; 93975; 76830; 74177; J2405; J1885; J1170; Q9967